=== PATIENT | male | born 1985 | race Caucasian/White ===

== ENCOUNTER 2017-09-15 09:52 | Emergency (ER) | payer MEDICARE, MEDICAID ==
[~2017-09-15] VITALS: Ht 182.9 cm; Wt 79.8 kg
[~2017-09-15 09:52] MED LIST: LITH300T PO; METH10TA2 PO; VENL25TA4 PO
--- NOTE | 2017-09-15 10:00 | NUR ---
AAOX[facility], [facility] [employer] AND [employer] C/O AUDITORY HALLUCINATION, RUN OUT OF PSYCH MEDS, AND CELLULITIS TO RFA. PATIENT DENIES SI/HI. RR IS EVEN AND UNLABORED WITH NAD NOTED. SKIN IS WARM AND DRY. PATIENT WAS COOPERATIVE. AWAITING MD FOR EVAL.
--- NOTE | 2017-09-15 10:15 | NUR ---
DR PALMER AT BS FOR EVAL.
--- NOTE | 2017-09-15 10:55 | NUR ---
Patient discharged to home in stable condition. Written and verbal after care instructions given. Patient verbalizes understanding of instruction.
[2017-09-15 11:05] VITALS: BP 138/85
== END 2017-09-15 10:56 | disposition home or self-care (01) ==
LOC: ER 09:53
DX: F41.9 Anxiety disorder, unspecified (principal); R44.0 Auditory hallucinations; F32.9 Major depressive disorder, single episode, unspecified
CPT/HCPCS: 99284; A4606; Z7610

== ENCOUNTER 2017-09-21 16:01 | Emergency (ER) | payer MEDICARE ==
[~2017-09-21] VITALS: Ht 177.8 cm; Wt 90.7 kg
[2017-09-21 16:18] VITALS: BP 127/80
[2017-09-21 18:11] LABS: BASOPHILS % (AUTO) 0.6 % (0.0-2.0); HEMATOCRIT 31 % (39-51); HEMOGLOBIN 9.7 g/dL (13.5-17.5); LYMPHOCYTES # (AUTO) 2.8 /CMM (0.8-4.8); LYMPHOCYTES % (AUTO) 46.8 % (20.0-44.0); MEAN CORPUSCULAR HGB CONC 32 g/dl (31.0-36.0); MEAN CORPUSCULAR VOLUME 63 fL (80-96); MONOCYTES # (AUTO) 0.6 /CMM (0.1-1.30); NEUTROPHILS # (AUTO) 2.4 /CMM (1.8-8.9); NEUTROPHILS % (AUTO) 40.6 % (43.0-81.0); PLATELET COUNT (AUTO) 386 /CMM (150-450); RDW COEFFICIENT OF VARIATION 25.6 (11.5-15.0); RED BLOOD CELL COUNT(AUTO) 4.83 MIL/uL (4.5-6.0); WHITE BLOOD COUNT (AUTO) 5.9 K/uL (4.3-11.0)
[2017-09-21 18:22] LABS: CALCIUM, SERUM 8.5 mg/dL (8.5-10.1); CARBON DIOXIDE 23 mmol/L (21-32); CHLORIDE 107 mmol/L (98-107); CREATININE 0.7 mg/dL (0.6-1.3); GLUCOSE 72 mg/dL (74-106); POTASSIUM 3.7 mmol/L (3.5-5.1); SODIUM SERUM 138 mmol/L (136-145); UREA NITROGEN, BLOOD 20 mg/dL (7-18)
[2017-09-21 18:30] LABS: ALANINE AMINOTRANSFERASE 222 U/L (12-78); ALBUMIN 3.1 g/dL (3.4-5.0); ALCOHOL, BLOOD < 3 mg/dL (0-0); ALKALINE PHOSPHATASE 180 U/L (46-116); ASPARTATE AMINOTRANSFERASE 95 U/L (15-37); BILIRUBIN,DIRECT 0.2 mg/dL (0.0-0.2); BILIRUBIN,TOTAL 0.6 mg/dL (0.2-1.0)
[2017-09-21 18:32] LABS: ACETAMINOPHEN < 2 ug/ml (10-30); SALICYLATE 0.4 mg/dL (2.8-20.0)
[2017-09-21 19:12] LABS: APPEARANCE,URINE Slightly Cloudy (CLEAR); BILIRUBIN,URINE SMALL (NEGATIVE); BLOOD, URINE Negative Ery/uL (NEGATIVE); COLOR,URINE Yellow (YELLOW); KETONES,URINE Negative (NEGATIVE); LEUKOCYTE ESTERASE ,URINE Negative (NEGATIVE); NITRITE, URINE Negative (NEGATIVE); PROTEIN,URINE Negative (NEGATIVE); UGLUCOSE Negative (NEGATIVE)
[2017-09-21 20:09] LABS: BACTERIA,URINE Few /HPF (None Seen); RBC,URINE 0-2 /HPF (0-2); SQUAMOUS EPITHELIAL CELL,UR Few /HPF (None Seen); WBC,URINE 0-2 /HPF (0-3)
== END 2017-09-21 20:07 | disposition home or self-care (01) ==
LOC: ER 16:03
DX: K80.20 Calculus of gallbladder without cholecystitis without obstruction (principal); D64.9 Anemia, unspecified; R74.0 Nonspecific elevation of levels of transaminase and lactic acid dehydrogenase [LDH]; F32.9 Major depressive disorder, single episode, unspecified; F31.9 Bipolar disorder, unspecified; F20.9 Schizophrenia, unspecified; Z86.19 Personal history of other infectious and parasitic diseases; K62.5 Hemorrhage of anus and rectum; Z59.0 Homelessness; Z60.2 Problems related to living alone
CPT/HCPCS: 36415; 76705-TC; 80048-TC; 80076-TC; 80305; 81000-TC; 83690-TC; 85025-TC; A4606; G0480; Z7610

== ENCOUNTER 2017-09-28 11:38 | Emergency (ER) | payer MEDICARE, MEDICAID ==
[~2017-09-28] VITALS: Ht 177.8 cm; Wt 90.7 kg
[2017-09-28] MEDS ORDERED: FAMOTIDINE/PF INJ 20 MG/2 ML VIAL IV ONE ×2 (12:00→12:03)
[2017-09-28] MEDS ORDERED: ONDANSETRON HCL/PF 4 MG/2 ML VIAL IVP ONE (12:00)
[2017-09-28] MEDS ORDERED: IV NS 0.9% 1,000 ML BAG IV ONE (12:00)
[2017-09-28] MEDS ORDERED: MORPHINE SULFATE INJ 2 MG/ML DISP.SYRIN IV ONE (12:00)
[2017-09-28] MEDS ORDERED: MORPHINE SULFATE INJ 2 MG/ML DISP.SYRIN ONE (12:02)
[2017-09-28] MEDS ORDERED: ONDANSETRON HCL/PF 4 MG/2 ML VIAL ONE (12:02)
[2017-09-28] MEDS ORDERED: MORPHINE SULFATE INJ 4 MG/ML DISP.SYRIN ONE (12:03)
[2017-09-28 12:10] LABS: BASOPHILS # (AUTO) 0.1 /CMM (0.0-0.2); EOSINOPHILS % (AUTO) 2.8 % (0.0-6.0); HEMATOCRIT 32 % (39-51); HEMOGLOBIN 10.3 g/dL (13.5-17.5); LYMPHOCYTES # (AUTO) 2.6 /CMM (0.8-4.8); LYMPHOCYTES % (AUTO) 48.7 % (20.0-44.0); MEAN CORPUSCULAR HGB CONC 32 g/dl (31.0-36.0); MEAN CORPUSCULAR VOLUME 64 fL (80-96); MONOCYTES # (AUTO) 0.5 /CMM (0.1-1.30); MONOCYTES % (AUTO) 8.7 % (2.0-12.0); NEUTROPHILS # (AUTO) 2.1 /CMM (1.8-8.9); NEUTROPHILS % (AUTO) 38.8 % (43.0-81.0); PLATELET COUNT (AUTO) 556 /CMM (150-450); RDW COEFFICIENT OF VARIATION 25.7 (11.5-15.0); RED BLOOD CELL COUNT(AUTO) 5.03 MIL/uL (4.5-6.0); WHITE BLOOD COUNT (AUTO) 5.5 K/uL (4.3-11.0)
--- NOTE | 2017-09-28 12:10 | NUR ---
US AT BS.
[2017-09-28 12:18] LABS: CALCIUM, SERUM 8.9 mg/dL (8.5-10.1); CREATININE 0.8 mg/dL (0.6-1.3); POTASSIUM 4.9 mmol/L (3.5-5.1)
--- NOTE | 2017-09-28 12:18 | NUR ---
IV ACCESS STARTED. PT MEDICATED ORDERED.
[2017-09-28 12:24] LABS: ALBUMIN 3.4 g/dL (3.4-5.0); BILIRUBIN,DIRECT 0.1 mg/dL (0.0-0.2); BILIRUBIN,TOTAL 0.4 mg/dL (0.2-1.0); TOTAL PROTEIN, SERUM 8.1 g/dL (6.4-8.2)
--- NOTE | 2017-09-28 13:08 | NUR ---
IV removed. Catheter intact and site benign. Pressure and 4x4 applied to site. No bleeding noted.
--- NOTE | 2017-09-28 13:09 | NUR ---
Patient discharged to home in stable condition. Written and verbal after care instructions given. Patient verbalizes understanding of instruction.
[2017-09-28 13:11] VITALS: BP 114/71
[2017-09-28 14:09] LABS: EOSINOPHILS % (MANUAL) 3 % (0-4); LYMPHOCYTES % (MANUAL) 46 % (16-48); MONOCYTES % (MANUAL) 8 % (0-11.0); NEUTROPHILS % (MANUAL) 43 (42-76)
== END 2017-09-28 13:12 | disposition home or self-care (01) ==
LOC: ER 11:47
DX: K80.20 Calculus of gallbladder without cholecystitis without obstruction (principal); D64.9 Anemia, unspecified; K76.0 Fatty (change of) liver, not elsewhere classified; R16.0 Hepatomegaly, not elsewhere classified; F20.9 Schizophrenia, unspecified; F31.9 Bipolar disorder, unspecified; F41.9 Anxiety disorder, unspecified; Z60.2 Problems related to living alone; Z86.19 Personal history of other infectious and parasitic diseases
CPT/HCPCS: 36415; 76705; 80048; 80076; 83690; 85025; 96361; 96374; 96375; 99285; A4606; J2270 ×2; J2405; J3490; J7030; Z7610

== ENCOUNTER 2017-11-10 16:09 | Emergency (ER) | payer MEDICARE, MEDICAID ==
[~2017-11-10] VITALS: Ht 165.1 cm; Wt 85.7 kg
[2017-11-10 16:36] VITALS: BP 154/94
== END 2017-11-10 16:53 | disposition home or self-care (01) ==
LOC: ER 16:13
DX: R21 Rash and other nonspecific skin eruption (principal); F32.9 Major depressive disorder, single episode, unspecified; F41.9 Anxiety disorder, unspecified; F20.9 Schizophrenia, unspecified; Z60.2 Problems related to living alone; Z86.19 Personal history of other infectious and parasitic diseases; Z79.899 Other long term (current) drug therapy; Z87.01 Personal history of pneumonia (recurrent)
CPT/HCPCS: A4606; Z7610

== ENCOUNTER 2019-05-23 11:40 | Emergency (ER) | payer MEDICARE, OTHER ==
[~2019-05-23] VITALS: Ht 180.3 cm; Wt 104.3 kg
--- NOTE | 2019-05-23 11:50 | NUR ---
BIB STAFF FROM [facility] FOR L ARM SWELLING/INFECTION". TO ER BED 11, HOOKED TO MONITOR, CHANGED TO HOSP GOWN, PROVIDED W WARM BLANKET, AWAITING MD DIXON.
--- NOTE | 2019-05-23 14:59 | NUR ---
[facility]: [place] [phone]
--- NOTE | 2019-05-23 15:06 | NUR ---
Spoke to [facility], will send someone to pick-up patient. Patient discharged in stable condition. Assisted to waiting room for pick-up. Written and verbal after care instructions given. Patient verbalizes understanding of instruction.
[2019-05-23 15:07] VITALS: BP 109/53
== END 2019-05-23 15:07 | disposition home or self-care (01) ==
LOC: ER 11:43
DX: L03.116 Cellulitis of left lower limb (principal); L03.115 Cellulitis of right lower limb; L03.114 Cellulitis of left upper limb; L03.113 Cellulitis of right upper limb; L03.211 Cellulitis of face; F32.9 Major depressive disorder, single episode, unspecified; F41.9 Anxiety disorder, unspecified; F20.9 Schizophrenia, unspecified; Z86.19 Personal history of other infectious and parasitic diseases; Z79.899 Other long term (current) drug therapy

== ENCOUNTER 2024-09-30 17:14 | Emergency (ER) | payer MEDICARE, OTHER ==
[~2024-09-30] VITALS: Ht 190.5 cm; Wt 99.8 kg
[2024-09-30] MEDS ORDERED: POTA20TA83 PO (17:53)
[2024-09-30] MEDS ORDERED: IBUP-1490 PO (17:53)
[2024-09-30] MEDS ORDERED: FURO-145 PO (17:53)
[2024-09-30] MEDS ORDERED: CLIN300C12 PO (17:53)
[2024-09-30] MEDS ORDERED: CLINDAMYCIN HCL 150 MG CAPSULE ONE (18:12)
[2024-09-30] MEDS: CLINDAMYCIN HCL 150 MG CAPSULE PO ONE (18:20)
[2024-09-30 18:24] VITALS: BP 138/92; TEMP 98.8; O2SAT 99
== END 2024-09-30 18:25 | disposition home or self-care (01) ==
LOC: ER 17:19
DX: L03.116 Cellulitis of left lower limb (principal); F20.9 Schizophrenia, unspecified; Z79.899 Other long term (current) drug therapy; Z86.19 Personal history of other infectious and parasitic diseases; Z87.01 Personal history of pneumonia (recurrent)